=== PATIENT | male | born 1975 | race Caucasian/White ===

== ENCOUNTER → 2023-05-25 15:12 | Outpatient (REF) | payer OTHER, SELFPAY | LOC: RAD 15:12 | PROVIDERS: ATTENDING PHYSICIAN Nurse Practitioner Family | DX: Z00.00 Encounter for general adult medical examination without abnormal findings (principal); R09.89 Other specified symptoms and signs involving the circulatory and respiratory systems | CPT/HCPCS: 93880 ==

== ENCOUNTER → 2023-09-21 06:27 | Day surgery (SDC) | payer OTHER, SELFPAY | LOC: GI 06:27 | PROVIDERS: ATTENDING PHYSICIAN Internal Medicine Gastroenterology | DX: Z12.11 Encounter for screening for malignant neoplasm of colon (principal); D12.5 Benign neoplasm of sigmoid colon; K63.5 Polyp of colon; K64.0 First degree hemorrhoids | CPT/HCPCS: 45380; 88305 ==

== ENCOUNTER → 2024-04-04 13:04 | Outpatient (REF) | payer OTHER, SELFPAY | LOC: HWRAD 13:04 | PROVIDERS: ATTENDING PHYSICIAN Internal Medicine | DX: R79.89 Other specified abnormal findings of blood chemistry (principal) | CPT/HCPCS: 76700 ==